=== PATIENT | male | born 1945 | race Caucasian/White ===

== ENCOUNTER 2018-09-15 11:06 | Emergency (ER) | payer MEDICARE, MEDICAID ==
[~2018-09-15] VITALS: Ht 177.8 cm; Wt 68.0 kg
[~2018-09-15 11:06] MED LIST: AMBIEN10 M1 ORAL; ASPIRIN EC81 MG ORAL; SIMVASTATIN20 MG ORAL; TAMSULOSIN HCL0.4 MG ORAL; VITAMIN B COMP1 EAC2 ORAL; VITAMIN C500 M1 ORAL; ZYPREXA10 MG ORAL
[2018-09-15 11:07] VITALS: BP 136/92
[2018-09-15 11:10] VITALS: BP 150/78
--- NOTE | 2018-09-15 11:10 | NUR ---
ED Nurse Note: Pt BIBA from [facility] c/o abdominal pain. Pt reported he had 10/10 pain at [facility] so he reported to nurse but currently 0/10. calm and cooperative, AAO x3-4, ambulatory, skin clean and intact.
[2018-09-15 11:59] LABS: APPEARANCE,URINE CLEAR; BASOPHILS % (AUTO) 0.6 % (0.0-2.0); BILIRUBIN, URINE NEGATIVE (NEGATIVE); COLOR,URINE PALE YELLOW; GLUCOSE, URINE (UA) NEGATIVE (NEGATIVE); HEMATOCRIT 41.7 % (42.0-52.0); KETONES,URINE NEGATIVE (NEGATIVE); LEUKOCYTE ESTERASE ,URINE NEGATIVE (NEGATIVE); LYMPHOCYTES % (AUTO) 24.8 % (20.0-45.0); MEAN CORPUSCULAR VOLUME 92 FL (80-99); MONOCYTES % (AUTO) 11.5 % (1.0-10.0); NITRITE,URINE NEGATIVE (NEGATIVE); PH,URINE 6.5 (4.5-8.0); PLATELET COUNT 170 K/UL (150-450); PROTEIN,URINE NEGATIVE (NEGATIVE); RED BLOOD COUNT 4.54 M/UL (4.70-6.10); RED CELL DISTRIBUTION WIDTH 11.8 % (11.6-14.8); UROBILINOGEN,URINE NORMAL MG/DL (0.0-1.0); WHITE BLOOD COUNT 6.8 K/UL (4.8-10.8)
[2018-09-15 12:15] LABS: ANION GAP 9 mmol/L (5-15); BLOOD UREA NITROGEN 21 mg/dL (7-18); CARBON DIOXIDE 26 MMOL/L (21-32); CHLORIDE 103 MMOL/L (98-107); CREATININE 1.3 MG/DL (0.55-1.30); POTASSIUM 4.4 MMOL/L (3.5-5.1); SODIUM 138 MMOL/L (136-145)
[2018-09-15 12:18] VITALS: BP 137/70
[2018-09-15 12:29] LABS: ALANINE AMINOTRANSFERASE 20 U/L (12-78); ALBUMIN 3.6 G/DL (3.4-5.0); ALKALINE PHOSPHATASE 118 U/L (46-116); ASPARTATE AMINO TRANSFERASE 30 U/L (15-37); BILIRUBIN,TOTAL 0.5 MG/DL (0.2-1.0); CKMB 1.7 NG/ML (0.0-3.6); CREATINE KINASE 340 U/L (26-308)
--- NOTE | 2018-09-15 13:10 | NUR ---
ED Nurse Note: Pt stood up and urinated in urinal 300cc and went back to bed with nurse's assist.
--- NOTE | 2018-09-15 13:26 | Emergency Room Report ---
History of Present Illness General Chief Complaint: Abdominal Pain Source: Patient, EMS Present Illness HPI Patient presents with complaints of right mid abdominal pain ongoing this morning for the last 1 hour Patient on arrival however is pain-free denies any nausea vomiting denies any fevers or chills Denies any diarrhea Denies any constipation Pain was a sharp pressure pain lasted a few minutes and resolved denies any neck pain or photophobia denies any trauma Allergies: Coded Allergies: LORAZEPAM (Verified Allergy, Unknown, 09/15/13) Patient History Past Medical History: see triage record Pertinent Family History: none Reviewed Nursing Documentation: PMH: Agreed; PSxH: Agreed Nursing Documentation-PMH Past Medical History: No History, Except For Hx Hypertension: Yes Hx Neurological Problems: Yes - SCHIZO Review of Systems All Other Systems: negative except mentioned in HPI Physical Exam Vital Signs Date Time Temp Pulse Resp B/P (MAP) Pulse Ox O2 Delivery O2 Flow Rate FiO2 09/15/18 11:02 81 18 153/89 96 Room Air 09/15/18 11:07 97.0 Sp02 EP Interpretation: reviewed, normal General Appearance: well appearing, no apparent distress Head: normocephalic, atraumatic Eyes: bilateral eye PERRL, bilateral eye EOMI ENT: hearing grossly normal, normal pharynx, TMs + canals normal, uvula midline Neck: full range of motion, supple, no meningismus, no bony tend Respiratory: lungs clear, normal breath sounds, no rhonchi, no respiratory distress, no retraction, no accessory muscle use Cardiovascular #1: normal peripheral pulses, regular rate, rhythm, no edema, no gallop, no JVD, no murmur Gastrointestinal: normal bowel sounds, non tender, soft, no mass, no organomegaly, non-distended, no guarding, no hernia, no pulsatile mass, no rebound Genitourinary: no CVA tenderness Musculoskeletal: normal inspection Neurologic: oriented x3, responsive, candy catcher III-XII nml as tested, motor strength/ tone normal, sensory intact Psychiatric: mood/affect normal Skin: normal color, no rash, warm/dry, palpation normal Lymphatic: normal inspection, no adenopathy Medical Decision Making Diagnostic Impression: Primary Impression: Abdominal pain ER Course With the history exam and presentation, multiple differentials considered, including but not limited to appendicitis, gastritis, cholecystitis, diverticulitis Patient's abdominal exam is soft and benign appropriate bowel sounds patient is pain-free imaging has not been initially obtained baseline blood work are all within normal limits patient continues to rest without discomfort And will have conservative outpatient trial at the [facility] Labs Test 09/15/18 11:30 White Blood Count 6.8 K/UL (4.8-10.8) Red Blood Count 4.54 M/UL (4.70-6.10) Hemoglobin 14.0 G/DL (14.2-18.0) Hematocrit 41.7 % (42.0-52.0) Mean Corpuscular Volume 92 FL (80-99) Mean Corpuscular Hemoglobin 30.8 PG (27.0-31.0) Mean Corpuscular Hemoglobin Concent 33.5 G/DL (32.0-36.0) Red Cell Distribution Width 11.8 % (11.6-14.8) Platelet Count 170 K/UL (150-450) Mean Platelet Volume 6.2 FL (6.5-10.1) Neutrophils (%) (Auto) 63.0 % (45.0-75.0) Lymphocytes (%) (Auto) 24.8 % (20.0-45.0) Monocytes (%) (Auto) 11.5 % (1.0-10.0) Eosinophils (%) (Auto) 0.0 % (0.0-3.0) Basophils (%) (Auto) 0.6 % (0.0-2.0) Urine Color Pale yellow Urine Appearance Clear Urine pH 6.5 (4.5-8.0) Urine Specific [place] 1.015 (1.005-1.035) Urine Protein Negative (NEGATIVE) Urine Glucose (UA) Negative (NEGATIVE) Urine Ketones Negative (NEGATIVE) Urine Blood 1+ (NEGATIVE) Urine Nitrite Negative (NEGATIVE) Urine Bilirubin Negative (NEGATIVE) Urine Urobilinogen Normal MG/DL (0.0-1.0) Urine Leukocyte Esterase Negative (NEGATIVE) Urine RBC 2-4 /HPF (0 - 0) Urine WBC 0 /HPF (0 - 0) Urine Squamous Epithelial Cells Occasional /LPF Urine Bacteria Occasional /HPF (NONE) Sodium Level 138 MMOL/L (136-145) Potassium Level 4.4 MMOL/L (3.5-5.1) Chloride Level 103 MMOL/L (98-107) Carbon Dioxide Level 26 MMOL/L (21-32) Anion Gap 9 mmol/L (5-15) Blood Urea Nitrogen 21 mg/dL (7-18) Creatinine 1.3 MG/DL (0.55-1.30) Estimat Glomerular Filtration Rate mL/min (>60) Glucose Level 101 MG/DL (74-106) Calcium Level 9.0 MG/DL (8.5-10.1) Total Bilirubin 0.5 MG/DL (0.2-1.0) Aspartate Amino Transf (AST/SGOT) 30 U/L (15-37) Alanine Aminotransferase (ALT/SGPT) 20 U/L (12-78) Alkaline Phosphatase 118 U/L (46-116) Total Creatine Kinase 340 U/L (26-308) Creatine Kinase MB 1.7 NG/ML (0.0-3.6) Creatine Kinase MB Relative Index 0.5 Troponin I 0.018 ng/mL (0.000-0.056) Total Protein 7.2 G/DL (6.4-8.2) Albumin 3.6 G/DL (3.4-5.0) Globulin 3.6 g/dL Albumin/Globulin Ratio 1.0 (1.0-2.7) Lipase 145 U/L (73-393) Rhythm Strip Diag. Results EP Interpretation: yes Rate: 77 Rhythm: NSR, no PVC's, no ectopy Other X-Ray Diagnostic Results Other X-Ray Diagnostic Results : X-Ray ordered: kub # of Views/Limited Vs Complete: 1 View Indication: Pain EP Interpretation: Yes Interpretation: no soft tissue swelling, nonspecific bowel gas, no sbo Impression: No acute disease Electronically Signed by: Belia Joshi DO Last Vital Signs Date Time Temp Pulse Resp B/P (MAP) Pulse Ox O2 Delivery O2 Flow Rate FiO2 09/15/18 12:18 97.1 90 21 137/70 94 Room Air Status: improved Disposition: XFER SNF Condition: Improved Referrals: NON PHYSICIAN (PCP) Additional Instructions: Patient is provided with the discharge instructions notified to follow up with primary doctor in the next 2-3 days otherwise return to the er with any worsening symptoms. Please note that this report is being documented using [employer] ([employer] technology. This can lead to erroneous entry secondary to incorrect interpretation by the dictating instrument. Belia Joshi DO Sep 15, 2018 13:26
[2018-09-15 13:36] VITALS: BP 124/68
--- NOTE | 2018-09-15 13:50 | NUR ---
ED Nurse Note: Report given to Suellen at [facility].
--- NOTE | 2018-09-15 14:26 | NUR ---
ED Nurse Note: pt sent down to radiology for xray abdomen via gurney. VSS.
[2018-09-15 14:50] VITALS: BP 145/78
--- NOTE | 2018-09-15 14:50 | NUR ---
ED Nurse Note: Transportation arrived. Pt was explained to be sent back to [facility] and verbalized understanding. VS was checked with transportation personnel and stable. IV and ID band removed by nurse. home lending officer received report by nurse.
--- NOTE | 2018-09-15 17:35 | Diagnostic Imaging Report ---
Indication: Abdominal Technique: Supine view of the abdomen Comparison: none Findings: Unremarkable bowel gas pattern. No unusual masses or calcifications. Impression: Negative
--- NOTE | 2018-09-16 13:03 | IOP Daily Group Progress Note ---
IOP Daily Group Progress Note Treatment Plan/Target Problem: Date: Sep 16, 2018 Problem: depression, impaired thoughts Program: reflections Group Reflections - Friday: group 3 (11:30am-12:15pm) Therapy Goal(s) of Group: anxiety reduction, communication skills, coping tools for symptoms, coping with change, counteracting negative thinking, decreasing isolation, establishing appropriate boundaries, identify mood, identifying strengths, socialization skills, support systems, symptom management, warning signs of decompensation, warning signs of regression Observations: anxious Staff Intervention: assessed pt's current mood, assisted with identifying symptoms, assisted with problem solving, encouraged patient participation, clarified pt issues, prompted pt, prompted reminiscence, provided reassurance, set limits, summarized, taught relaxation skills, validated feelings Staff Intervention: : Facilitated discussion, normalized feelings, provided psycho-education. Response/Progress Noted: Pt participated in a Cognitive Behavioral Therapy exercise how different types of personalities are associated with anxiety and depression. . Pt benefitted from the discussion by becoming more aware of his/her own personality style and how it relates to depression/anxiety. 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 I get anxious when I'm not sure what going go in my life." TRACY WOODARD Sep 16, 2018 13:03
--- NOTE | 2018-09-23 18:55 | Cardiology Report ---
APPROVED REPORT EKG Measurement Heart [id number] FL [id number] [id number] Sinus rhythm with fusion complexes Otherwise normal ECG
[2018-09-24] MEDS ORDERED: ZYPREXA ZYDIS5 MG ORAL (09:58)
[2018-09-24] MEDS ORDERED: VITAMIN B-12500 MCG ORAL (09:58)
--- NOTE | 2018-09-24 13:26 | IOP Daily Group Progress Note ---
IOP Daily Group Progress Note Treatment Plan/Target Problem: Problem: depression, impaired thoughts Program: reflections Group Reflections - : group 2 (10:35am-11:20am) Therapy Goal(s) of Group: anxiety reduction, coping tools for symptoms, coping with change, counteracting negative thinking, decreasing isolation, identifying strengths, impact of current issues on mood, improving self esteem, interpersonal relationships, medication compliance, socialization skills, symptom management, verbalize current thoughts and mood, warning signs of decompensation Observations: anxious Staff Intervention: assisted identifying coping tools, assisted with identifying symptoms, assisted with problem solving, encouraged patient participation, clarified pt issues, prompted pt, prompted reminiscence, provided psycho-education, role playing, taught relaxation skills Staff Intervention: Facilitated discussion, normalized feelings, provided psycho-education. Response/Progress Noted: Pt participated in a Cognitive Behavioral Therapy exercise from an article on this topic from [email or web address]. Resilience Draw an image of a being in nature that survives in a harsh environment: a flower in a sidewalk; a fish at the bottom of the ocean; a creature in the desert. Pt benefitted from the discussion by becoming more aware of his/her ability to cope with stressful life experience. Pt rather the changing temperatures of the weather to his ability to cope with stress and anxiety. TRACY WOODARD Sep 24, 2018 13:26
[2018-09-30] MEDS ORDERED: VITAMIN B-12500 MCG ORAL (10:20)
== END 2018-09-15 14:50 ==
LOC: EDBD 11:06 → EMR 11:36
DX: R10.9 Unspecified abdominal pain (principal); I10 Essential (primary) hypertension; F20.9 Schizophrenia, unspecified
CPT/HCPCS: 36415; 74018; 80053; 81003; 82550; 82553; 83690; 84484; 85025; 93005; 99283